=== PATIENT | female | born 1940 | race Caucasian/White ===

== ENCOUNTER → 2017-11-23 | Outpatient (CLI) | payer MEDICARE, BC | LOC: LAB 11:07 | PROVIDERS: ATTEND Internal Medicine Cardiovascular Disease | DX: I70.219 Atherosclerosis of native arteries of extremities with intermittent claudication, unspecified extremity (principal); I10 Essential (primary) hypertension; I25.10 Atherosclerotic heart disease of native coronary artery without angina pectoris; E78.5 Hyperlipidemia, unspecified | CPT/HCPCS: 36415; 82310; 82374; 82435; 82465; 82565; 82947; 83718; 84132; 84295; 84478; 84520 ==

== ENCOUNTER → 2017-12-06 | Outpatient (CLI) | payer MEDICARE, BC ==
--- NOTE | 2017-12-06 15:02 | RT STRESS TEST REPORT ---
FACILITY: [facility] PATIENT NAME: MONTANA MORRISON : [id number] MR: [id number] V: [id number] EXAM DATE: ORDERING PHYSICIAN: IRVING HATHAWAY TECHNOLOGIST: [employer] Time: 2017-12-06 14:29:34 Total Exercise Time: 00:03:21 Test Indications: Screening for CAD Medications: see list Protocol: TOBIN 2 Max HR: 139 BPM 96% of Pred: 144 BPM Max BP: 204/131 mmHG Max Work Load: 4.6 METS Confirmed by VINNIE BOYD ([id number]) on 12/06/2017 3:01:12 PM Referred By: Irving Hathaway Overread By: VINNIE BOYD
--- NOTE | 2017-12-06 17:42 | RADIOLOGY IMAGING REPORT ---
FACILITY: [facility] PATIENT NAME: Hazel Ayoub : 1940 MR: [id number] V: [id number] EXAM DATE: ORDERING PHYSICIAN: RODO HUDSON TECHNOLOGIST: [facility] Patient: Hazel Ayoub : 1940 Visit/Account:[id number] Date of Sevice: 12/06/2017 EXAMINATION: Single Isotope SPECT Imaging with Exercise and Gated SPECT Imaging DATE OF EXAMINATION: 12/06/2017 DATE OF INTERPRETATION: 12/06/2017 REQUESTING PHYSICIAN: RODO HUDSON INDICATION: The patient is a 77-year-old female evaluated for CAD, arrhythmia concerning for ischemi c etiology. PROCEDURE: After informed consent the patient received an intravenous injection of 12.8 mCi of Tc-9 9m sestamibi followed at the appropriate time interval by rest imaging. The patient then exercised a ccording to the standard Wood protocol for 3:21 minutes achieving 4.6 METS. Resting heart rate was 80 bpm with a peak heart rate of 139 bpm which is 96 % of maximal predicted heart rate for age. Blo od pressure at rest was 158 / 96; blood pressure during exercise was 204 / 131. There was no reporte d chest pain during exercise. Exercise was discontinued because of back pain. Baseline EKG demonstr ates normal sinus rhythm. There were no EKG changes of ischemia at peak exercise. Approximately one minute and 30 seconds prior to the termination of exercise, the patient received an intravenous inje ction of 30.9 mCi of Tc-99m sestamibi followed by stress imaging. RAW DATA: Examination of the summed raw data revealed a excellent quality study. MYOCARDIAL PERFUSION: The tomographic images demonstrate normal homogenous myocardial tracer uptake in all segments. No perfusion defects. No transient ischemic dilation. GATED IMAGES: The gated images demonstrate EF greater than 70%. Normal regional wall motion. IMPRESSION: 1. Normal treadmill stress test 2. Normal myocardial perfusion scan. 3. Normal LV systolic function; LVEF greater than 70%. 4. Based on the results of this exam, the patient appears to be at low risk for future cardiovascular events. Report Dictated By: Roberto Rivera at 12/06/2017 5:34 PM Report E-Signed By: Roberto Rivera at 12/06/2017 5:39 PM WSN:[id number]
== END ==
LOC: NUC 00:54
PROVIDERS: ATTEND Internal Medicine Cardiovascular Disease
DX: I25.10 Atherosclerotic heart disease of native coronary artery without angina pectoris (principal)
CPT/HCPCS: 78452; 93017; A9500